=== PATIENT | female | born 2000 | race Caucasian/White ===

== ENCOUNTER 2020-06-11 06:54 | Outpatient (NON) | payer OTHER, SELFPAY ==
[2020-06-11 21:57] LABS: SARS-CoV-2 RNA PCR Negative
== END 2020-06-11 06:55 ==
LOC: ANHCOVIDDT 07:10
PROVIDERS: PCP Nurse Practitioner Family; Visit Provider Nurse Practitioner Family
DX: Z20.822 Contact with and (suspected) exposure to COVID-19 (principal); R51.9 Headache, unspecified
CPT/HCPCS: C9803; U0003; U0005

== ENCOUNTER 2020-07-03 09:15 | Emergency (ER) | payer OTHER, SELFPAY ==
--- NOTE | ~2020-07-03 | XR_ITS ---
EXAMINATION: XR ankle RT min 3V DATE: 07/03/2020 09:35 INDICATION: Right ankle injury. TECHNIQUE: 3 views of right ankle were obtained. COMPARISON: Right ankle radiographs 02/01/2013 FINDINGS: There is a comminuted fracture of distal fibula with medial aspect of the fracture line at the level of the tibial plafond. The main distal fracture fragment demonstrates 10 degrees lateral an gulation, 4 mm posterior displacement, and 19 degrees posterior angulation. There is a displaced cristina nal fracture of the posterior malleolus. There is a comminuted fracture of the medial malleolus. The main distal fracture fragment demonstrates 5 mm lateral displacement and 10 degrees lateral angulatio n. There is posterior and lateral subluxation of talus with respect to tibial plafond. There is mild midfoot osteoarthritis. Ankle soft tissue swelling is noted. IMPRESSION: 1. Trimalleolar ankle fracture subluxation. Reviewed, dictated and finalized at location A. DETASSELER MACHINE OPERATOR
--- NOTE | ~2020-07-03 | XR_ITS ---
EXAMINATION: XR ankle RT 2V INDICATION: Trimalleolar fracture subluxation post reduction TECHNIQUE: Two views of the right ankle are obtained. COMPARISON: 0938 hours FINDINGS: There has been near complete reduction of the previously described trimalleolar ankle fract ure subluxation. The distal fibular fracture fragment remains posteriorly displaced approximately 8 m m. Ankle soft tissue swelling is present. A splint has been applied. IMPRESSION: 1. Near complete reduction of the trimalleolar ankle fracture subluxation. Reviewed, dictated and finalized at location A. RVISOR STRIPPING
[2020-07-03 09:16] VITALS: BP 123/82; PULSE 84; RESP 18; TEMP 36.8; O2SAT 98
[2020-07-03] MEDS: MORPHINE SULFATE (*CRX) 4 MG/ML INJ IV PUSH (09:39)
--- NOTE | 2020-07-03 10:05 | ED.GENADULT ---
HPI - General Adult General Chief complaint: Extremity Injury, Lower Stated complaint: ankle deformity Time Seen by Provider: 07/03/20 09:15 Source: patient Mode of arrival: ambulatory Limitations: no limitations History of Present Illness HPI narrative: Patient is a 19-year-old female who presents per EMS after injuring the right ankle after slipping on a set of stairs with deformity noted moderate aching pain worse with activity movement had 4 of morphine in route continues to have pain denies other injuries or trauma Related Data Allergies Allergy/AdvReac Type Severity Reaction Status Date / Time No Known Allergies Allergy Mild Verified 07/03/20 09:21 Review of Systems Review of Systems: All systems reviewed & are unremarkable except as noted in HPI and below PMFSH Past Medical History Medical History (Updated 07/03/20 @ 10:07 by Bryant Nick PA-C) Anxiety Depression Social History Social History (Updated 07/03/20 @ 10:06 by Bryant Nick PA-C) Smoking status: Never smoker Exam Narrative: Exam Narrative: GENERAL: Well-appearing, obese, and in no acute distress. HEAD: Normocephalic, atraumatic. EYES: PERRLA and EOMI. ENT: Nares clear, no rhinorrhea or epistaxis. Mucous membranes moist. CHEST: Clear to auscultation. No respiratory distress. No wheezes rales or rhonchi HEART: Regular rate and rhythm. No murmur heard. EXTREMITIES: Patient with swelling and deformity of the right ankle joint remainder of extremity nontender no deformity SKIN: Warm, dry, no rash. NEURO: No focal deficits. Alert and oriented x3. Neurovascularly intact. Capillary refill less than 2 seconds PSYCH: Normal mood and affect. 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 specialist in [place] Consultations Consultation #1: Case discussed with orthopedic surgery who will follow patient in clinic on Tuesday Date: 07/03/20 Time: 12:15 Vital Signs Vital signs: Vital Signs Temperature 98.2 F 07/03/20 09:16 Pulse Rate 84 07/03/20 09:16 Respiratory Rate 18 07/03/20 09:16 Blood Pressure 123/82 07/03/20 09:16 Pulse Oximetry 98 07/03/20 09:16 Temperature 98.2 F 07/03/20 09:16 Pulse Rate 96 07/03/20 11:15 Respiratory Rate 18 07/03/20 11:15 Blood Pressure 112/73 07/03/20 11:15 Pulse Oximetry 100 07/03/20 11:15 Procedures Orthopedic Fracture Reduction Fracture #1: Fracture Reduction date: 07/03/20 Fracture Reduction time: 12:15 Time Out Performed: Yes Side: left Fracture Reduction Location: tibia and fibula Analgesia: other (IV narcotics) Pre-Procedure Neuro Vascular Exam: normal Technique: direct manipulation Post Reduction X-rays Demonstrate: anatomical reduction Post-reduction neuro exam: intact Post-reduction vascular exam: intact Splint Applied: Yes Patient Tolerated Procedure: well Additional Comments: Neurovascularly intact pre and post procedure Orthopedic Splinting/Casting Injury #1: Splinting/Casting Date: 07/03/20 Splinting/Casting Time: 12:16 Side: right Lower Extremity Injury Location: ankle Lower Extremity Immobilizer: posterior splint and stirrup splint Splint: customized in ED OCL: stirrup Pre-Procedure Neuro Vascular Exam: normal Post-Procedure Neuro Vascular Exam: normal Other Orthopedic Equipment: crutches Medical Decision Making MDM Narrative Medical decision making narrative: Patients injury or pain is consistent with musculoskeletal etiology. No signs of neurological or vascular compromise on exam. Compartments and tisues are soft without signs of compartment syndrome. Pain is felt appro
[2020-07-03] MEDS: HYDROmorphone HCL INJ (*CRX) 1 MG/ML SYR IV PUSH (11:14)
[2020-07-03 11:15] VITALS: BP 112/73; PULSE 96; RESP 18; O2SAT 100
[2020-07-03] MEDS: HYDROmorphone HCL INJ (*CRX) 1 MG/ML SYR 0.5 MG IV PUSH (11:23)
[2020-07-03] MEDS: ONDANSETRON INJ 4 MG/2 ML VIAL IV PUSH (12:26)
[2020-07-03 12:46] VITALS: BP 113/84; PULSE 85; RESP 18; O2SAT 97
== END 2020-07-03 12:48 | disposition home or self-care (01) ==
PROVIDERS: Emergency Provider Emergency Medicine; PCP Nurse Practitioner Family
DX: S82.851A Displaced trimalleolar fracture of right lower leg, initial encounter for closed fracture (principal); W10.9XXA Fall (on) (from) unspecified stairs and steps, initial encounter
CPT/HCPCS: 27818; 73600; 73610; 96374; 96375; 99284; J1170; J2270; J2405

== ENCOUNTER 2021-08-16 21:06 | Emergency (ER) | payer OTHER, SELFPAY ==
[2021-08-16 21:15] VITALS: BP 121/79; PULSE 81; RESP 16; TEMP 36.9; O2SAT 99
--- NOTE | 2021-08-16 21:29 | ED.WOUNDLAC ---
HPI - Wound/Laceration General Chief Complaint: Wound/Laceration Stated Complaint: Lac to left hand. Time Seen by Provider: 08/16/21 21:18 History of Present Illness HPI narrative: 20-year-old female presented to emergency room complaining of a laceration to her left hand. Patient states that she was using a knife and accidentally cut her hand. Tetanus is not up-to-date. Related Data Allergies Allergy/AdvReac Type Severity Reaction Status Date / Time No Known Allergies Allergy Mild Verified 08/16/21 21:42 Review of Systems Review of Systems: CONSTITUTIONAL: Denies fever, chills, or sweats. EYES: Denies visual changes, redness, or discharge. ENT: Denies rhinorrhea, congestion, sore throat, or otalgia. CARDIOVASCULAR: Denies chest pain, palpitations, or edema. RESPIRATORY: Denies cough or dyspnea. GASTROINTESTINAL: Denies abdominal pain, nausea, vomiting, or diarrhea. GENITOURINARY: Denies dysuria or hematuria. SKIN: Laceration left hand MUSCULOSKELETAL: Denies back pain, joint pain, or myalgia. NEUROLOGIC: Denies headache, numbness, dizziness, or weakness. PSYCHIATRIC: Denies anxiety or depression. [facility] Past Medical History Medical History (Updated 08/16/21 @ 22:39 by Kit Deal APRN) Anxiety Depression Social History Social History (Updated 07/03/20 @ 10:06 by Bryant Nick PA-C) Smoking status: Never smoker Exam Narrative: GENERAL: Well-appearing, well-nourished, and in no acute distress. HEAD: Normocephalic, atraumatic. EYES: PERRLA and EOMI. ENT: Nares clear, no rhinorrhea or epistaxis. Mucous membranes moist. CHEST: Clear to auscultation. No respiratory distress. No wheezes rales or rhonchi HEART: Regular rate and rhythm. No murmur heard. Normal peripheral pulses. EXTREMITIES: Normal range of motion. No edema. SKIN: Warm, dry, no rash. Left hand: 2 cm laceration palmar side of the base of the second finger; full range of motion; no joint laxity NEURO: No focal deficits. Alert and oriented x3. PSYCH: Normal mood and affect. Course Vital Signs Vital signs: Vital Signs Temperature 36.9 C 03/27/22 21:15 Pulse Rate 81 08/16/21 21:15 Respiratory Rate 16 08/16/21 21:15 Blood Pressure 121/79 08/16/21 21:15 Pulse Oximetry 99 08/16/21 21:15 Temperature 36.9 C 08/16/21 21:15 Pulse Rate 81 08/16/21 21:15 Respiratory Rate 16 08/16/21 21:15 Blood Pressure 121/79 08/16/21 21:15 Pulse Oximetry 99 08/16/21 21:15 Procedures Laceration Laceration 1: Date: 08/16/21 Time: 22:38 Site: upper extremity Side (If applicable): left Size (cm): 2 Description: linear Depth: simple, single layer Local Anesthetic: lidocaine 1% Amount of anesthesia used (mL): 2 Pre-repair: irrigated ====== Skin Level ====== Skin layer closed with: nylon Size (cm): 4-0 Number of sutures: 4 Technique: simple, interrupted ====== Subcutaneous Layer ====== ====== Muscle Layer ====== ====== Tendon Layer ====== Dressing: non-stick with coban Discharge Plan Discharge Clinical Impression: Laceration Patient Disposition: Home, Self-Care Condition: Stable Instructions: Antibiotic Form Prescriptions: New cephalexin 500 mg capsule 500 mg PO Q12H Qty: 14 RF: 0 No Action hydrocodone-acetaminophen 5-325 mg tablet 1 tablet PO Q6H PRN (Reason: pain) Qty: 12 RF: 0 Follow-up/Referrals: Александр,Judy Callaway BLOCK ENGRAVER-BC [Primary Care Provider] - Time of Disposition: 22:40
[2021-08-16] MEDS: TETANUS,DIPHTHERIA,AC PERTUSSIS ADULT (0.5 ML) BOOSTRIX IM (22:17)
[2021-08-16] MEDS: LIDOCAINE HCL 1% PF 30 ML VIAL 5 ML INFILTRATE (22:17)
== END 2021-08-16 22:48 | disposition home or self-care (01) ==
PROVIDERS: Emergency Provider Nurse Practitioner Family; PCP Nurse Practitioner Family
DX: S61.412A Laceration without foreign body of left hand, initial encounter (principal); Z23 Encounter for immunization; W26.0XXA Contact with knife, initial encounter
CPT/HCPCS: 12001; 90471; 90715; 99283

== ENCOUNTER 2022-11-11 12:19 | Emergency (ER) | payer OTHER, SELFPAY ==
[2022-11-11 12:27] VITALS: BP 130/86; PULSE 100; RESP 18; TEMP 36.6; O2SAT 100
--- NOTE | 2022-11-11 13:05 | ED.URI ---
HPI - URI/Sore Throat General Chief Complaint: Upper Respiratory Infection Stated Complaint: Sore Throat,Cough,Congestion Time Seen by Provider: 11/11/22 12:56 Source: patient and RN notes reviewed Mode of arrival: ambulatory Limitations: no limitations History of Present Illness HPI Narrative: Patient presents today with a 10 day history of sore throat, nasal congestion and sinus pressure, bilateral ear pain, cough, headache, intermittent shortness of breath. Denies fever. She has been taking DayQuil and NyQuil without much relief. She has also been using her rescue inhaler. History of asthma. She is a nonsmoker. She has had 2- home COVID-19 test. Denies any known sick contacts. Related Data Home Medications Medication Instructions Recorded Confirmed albuterol sulfate 90 mcg/actuation 2 inh inhalation PRN PRN Wheezing 11/11/22 11/11/22 breath activated powder inhaler,sensor (Proair Digihaler) Allergies Allergy/AdvReac Type Severity Reaction Status Date / Time shellfish derived Allergy Unknown Verified 11/11/22 12:52 Review of Systems Review of Systems: CONSTITUTIONAL: Denies body aches, fever, chills, or sweats. EYES: Denies visual changes, redness, or discharge. ENT: Denies rhinorrhea. + nasal congestion, sinus pressure, sore throat, bilateral ear pain CARDIOVASCULAR: Denies chest pain, palpitations, or edema. RESPIRATORY: + cough, shortness of breath GASTROINTESTINAL: Denies abdominal pain, nausea, vomiting, or diarrhea. GENITOURINARY: Denies dysuria or hematuria. SKIN: Denies rash, itching, or wounds. MUSCULOSKELETAL: Denies back pain, joint pain, or myalgia. NEUROLOGIC: Denies numbness, tingling, or weakness.+ headache PSYCH: Denies depression or anxiety. [facility] Past Medical History Medical History (Updated 11/11/22 @ 13:10 by Deedee Mg, MAXIMILIANO, BC) Anxiety Asthma Depression Social History Social History Smoking status: Never smoker Comments At time of signature, I have reviewed and agree with nursing past medical, surgical, social and family history unless otherwise noted. Please see nursing chart for further information. There is no relevant family history pertinent to the presenting complaint Exam Narrative: GENERAL: Mildly ill-appearing, well-nourished, and in no acute distress. HEAD: Normocephalic, atraumatic. EYES: EOMI. No redness or drainage. Conjunctivae normal. ENT: Mucous membranes pink and moist. Nares congested. No rhinorrhea. Bilateral maxillary sinus tenderness. TMs normal bilaterally. Throat normal. Uvula midline. NECK: Normal AROM. Supple. No lymphadenopathy. CHEST: No respiratory distress. Clear to auscultation. Frequent harsh cough noted. HEART: Regular rate and rhythm. No murmur appreciated. Normal peripheral pulses. EXTREMITIES: Normal range of motion. No edema. SKIN: Warm, dry, no rash. Capillary refill normal. Normal skin turgor. NEURO: No focal deficits. Alert and oriented x3. Gait steady. PSYCH: Normal affect. No signs of depression or anxiety. Course Course Level of Care: Express Care Visit Vital Signs Vital signs: Vital Signs Temperature 97.9 F 11/11/22 12:27 Pulse Rate 100 11/11/22 12:27 Respiratory Rate 18 11/11/22 12:27 Blood Pressure 130/86 11/11/22 12:27 Pulse Oximetry 100 11/11/22 12:27 Oxygen Delivery Room Air 11/11/22 12:27 Temperature 97.9 F 11/11/22 12:27 Pulse Rate 100 11/11/22 12:27 Respiratory Rate 18 11/11/22 12:27 Blood Pressure 130/86 11/11/22 12:27 Pulse Oximetry 100 11/11/22 12:27 Oxygen Delivery Room Air 11/11/22 12:30 Reviewed. Pt has been instructed to follow up with her PCP regarding her elevated blood pressure today. MDM - URI/Sore Throat MDM Narrative Medical decision making narrative: Symptoms and exam consistent with bacterial sinusitis and bronchitis with asthma exacerbation. Will evelyn
== END 2022-11-11 13:15 | disposition home or self-care (01) ==
PROVIDERS: Emergency Provider Nurse Practitioner; PCP Nurse Practitioner Family
DX: J01.90 Acute sinusitis, unspecified (principal); J45.901 Unspecified asthma with (acute) exacerbation
CPT/HCPCS: 99213; G0463